=== PATIENT | male | born 1980 | race Hispanic/Latino ===

== ENCOUNTER 2018-03-04 11:29 | Emergency (ER) | payer SELFPAY ==
[2018-03-04] MEDS ORDERED: LIDOCAINE VISCOUS 2% SOLN 15 ML UDC ONE (12:16)
[2018-03-04] MEDS ORDERED: KETOROLAC 30 MG/ML INJ ONE (12:16)
[2018-03-04] MEDS ORDERED: MAGNE/ALUM HYDROXD 30 ML UCUP ONE (12:23)
--- NOTE | 2018-03-04 12:42 | EDPHYS ---
Physician Documentation [facility] Name: Heladio Stein Age: 37 yrs Sex: Male : 1980 Arrival Date: 03/04/2018 Time: 11:31 Bed 25 Private MD: None, None ED Physician Santo Alexandra HPI: 03/04 12:50 This 37 yrs old Male presents to ER via Ambulatory with complaints of Flu snw Symptoms. 12:50 Onset: The symptoms/episode began/occurred suddenly, yesterday, and became persistent. snw Associated signs and symptoms: Pertinent positives: congestion, cough, headache, sore throat. It is unknown whether or not the patient has had similar symptoms in the past. The patient has not recently seen a physician. Historical: - Allergies: 11:42 No Known Allergies; ss - Home Meds: 11:42 None [Active]; ss - PMHx: 11:42 None; ss - PSHx: 11:42 None; ss - Immunization history:: Adult Immunizations up to date. - Social history:: Smoking status: Patient/guardian denies using tobacco. - Ebola Screening: : Patient denies exposure to infectious person Patient denies travel to an Ebola-affected area in the 21 days before illness onset. ROS: 13:12 Eyes: Negative for injury, pain, redness, and discharge. snw 13:12 Neck: Negative for injury, pain, and swelling, Cardiovascular: Negative for chest pain, palpitations, and edema, Respiratory: Negative for shortness of breath, cough, wheezing, and pleuritic chest pain, Abdomen/GI: Negative for abdominal pain, nausea, vomiting, diarrhea, and constipation, Back: Negative for injury and pain, : Negative for injury, bleeding, discharge, and swelling, MS/Extremity: Negative for injury and deformity, Skin: Negative for injury, rash, and discoloration, Neuro: Negative for headache, weakness, numbness, tingling, and seizure. 13:12 Constitutional: Positive for body aches, fatigue, malaise, poor PO intake. 13:12 ENT: Positive for nasal discharge, sore throat. Exam: 13:12 Head/Face: Normocephalic, atraumatic. Eyes: Pupils equal round and reactive to light, snw extra-ocular motions intact. Lids and lashes normal. Conjunctiva and sclera are non-icteric and not injected. Cornea within normal limits. Periorbital areas with no swelling, redness, or edema. 13:12 Neck: Trachea midline, no thyromegaly or masses palpated, and no cervical lymphadenopathy. Supple, full range of motion without nuchal rigidity, or vertebral point tenderness. No Meningismus. Chest/axilla: Normal chest wall appearance and motion. Nontender with no deformity. No lesions are appreciated. Cardiovascular: Regular rate and rhythm with a normal S1 and S2. No gallops, murmurs, or rubs. Normal PMI, no JVD. No pulse deficits. Respiratory: Lungs have equal breath sounds bilaterally, clear to auscultation and percussion. No rales, rhonchi or wheezes noted. No increased work of breathing, no retractions or nasal flaring. Abdomen/GI: Soft, non-tender, with normal bowel sounds. No distension or tympany. No guarding or rebound. No evidence of tenderness throughout. Back: No spinal tenderness. No costovertebral tenderness. Full range of motion. Skin: Warm, dry with normal turgor. Normal color with no rashes, no lesions, and no evidence of cellulitis. MS/ Extremity: Pulses equal, no cyanosis. Neurovascular intact. Full, normal range of motion. Neuro: Awake and alert, GCS 15, oriented to person, place, time, and situation. Cranial nerves II-XII grossly intact. Motor strength 5/5 in all extremities. Sensory grossly intact. Cerebellar exam normal. Normal gait. 13:12 Constitutional: The patient appears alert, awake, uncomfortable. 13:12 ENT: External ear(s): are unremarkable, TM's: erythema, that is mild, on the left, Mouth: is normal, Posterior pharynx: swelling, that is mild, erythema, that is moderate, Voice: is normal. Vital Signs: 11:42 Pulse 67; Resp 15; Temp 97.9(TE); Pulse Ox 97% ; Weight 113.4 kg; Height 5 ft. 7 in. ss (170.18 cm); Pain 6/10; 11:43 BP 147 / 80; ss 11:42 Body Mass Index 39.16 (113.40 kg, 170.18 cm) MDM: 11:55 Patient medically screened. snw 12:49 Data reviewed: vital signs, nurses notes. Data interpreted: Pulse oximetry: on room air snw Interpretation: normal. Counseling: I had a detailed discussion with the patient and/or guardian regarding: the historical points, exam findings, and any diagnostic results supporting the discharge/admit diagnosis, the presence of at least one elevated blood pressure reading (>120/80) during this emergency department visit, the need for outpatient follow up, to return to the emergency department if symptoms worsen or persist or if there are any questions or concerns that arise at home. Special discussion: I have referred the patient to see his PCP for further evaluation of high blood pressure. Based on the history and exam findings, there is no indication for further emergent testing or inpatient evaluation. I discussed with the patient/guardian the need to see the primary care provider for further evaluation of the symptoms. 03/04 11:56 Order name: Strep; Complete Time: 12:39 snw 03/04 12:32 Order name: Throat Culture EDMS Administered Medications: 12:24 Drug: TORadol 60 mg Route: IM; Site: left gluteus; ss 12:57 Follow up: Response: No adverse reaction ss 12:24 Drug: GI Cocktail without - (Maalox Suspension 30 ml, Lidocaine Liquid 2 % 15 ss ml) Route: PO; 12:57 Follow up: Response: No adverse reaction; Pain is decreased ss Disposition: 15:45 Co-signature as Attending Physician, Santo Alexandra MD. rn Disposition: 03/04/18 12:41 Discharged to Home. Impression: Acute pharyngitis, Acute upper respiratory infection, unspecified. - Condition is Stable. - Discharge Instructions: Hypertension, Pharyngitis, Viral Respiratory Infection, Cool Mist Vaporizer. - Prescriptions for Prednisone 20 mg Oral Tablet - take 1 tablet by ORAL route 2 times per day for 5 days; 10 tablet. Tessalon Perles 100 mg Oral Capsule - take 1 capsule by ORAL route every 8 hours As needed; 15 capsule. - Work release form, Medication Reconciliation Form, Thank You Letter, Antibiotic Education, Prescription Opioid Use form. - Follow up: Private Physician; When: 2 - 3 days; Reason: Recheck today's complaints, Continuance of care, Re-evaluation by your physician. Follow up: Emergency Department; When: As needed; Reason: Worsening of condition. Signatures: Dispatcher [employer] EDWendy Haasy, STATISTICS INTERN-C STATISTICS INTERN-Csnw Santo Alexandra MD MD rn Lucy Pratt RN RN ss Corrections: (The following items were deleted from the chart) 12:59 12:41 03/04/2018 12:41 Discharged to Home. Impression: Acute pharyngitis; Acute upper ss respiratory infection, unspecified. Condition is Stable. Forms are Medication Reconciliation Form, Thank You Letter, Antibiotic Education, Prescription Opioid Use. Follow up: Private Physician; When: 2 - 3 days; Reason: Recheck today's complaints, Continuance of care, Re-evaluation by your physician. Follow up: Emergency Department; When: As needed; Reason: Worsening of condition. snw
--- NOTE | 2018-03-04 12:42 | ER ---
Nurse's Notes [facility] Name: Heladio Stein Age: 37 yrs Sex: Male : 1980 Arrival Date: 03/04/2018 Time: 11:31 Bed 25 Private MD: None, None Diagnosis: Acute pharyngitis;Acute upper respiratory infection, unspecified Presentation: 03/04 11:41 Presenting complaint: Patient states: sore throat, body aches and fatigue that began ss yesterday. Transition of care: patient was not received from another setting of care. Onset of symptoms was March 04, 2018. Risk Assessment: Do you want to hurt yourself or someone else? Patient reports no desire to harm self or others. Initial Sepsis Screen: Does the patient meet any 2 criteria? No. Patient's initial sepsis screen is negative. Does the patient have a suspected source of infection? No. Patient's initial sepsis screen is negative. Care prior to arrival: None. 11:41 Method Of Arrival: Ambulatory ss 11:41 Acuity: ROLANDO 4 ss Historical: - Allergies: 11:42 No Known Allergies; ss - Home Meds: 11:42 None [Active]; ss - PMHx: 11:42 None; ss - PSHx: 11:42 None; ss - Immunization history:: Adult Immunizations up to date. - Social history:: Smoking status: Patient/guardian denies using tobacco. - Ebola Screening: : Patient denies exposure to infectious person Patient denies travel to an Ebola-affected area in the 21 days before illness onset. Screenin:43 Abuse screen: Denies threats or abuse. Denies injuries from another. Nutritional ss screening: No deficits noted. Tuberculosis screening: Never had TB. Fall Risk None identified. Assessment: 12:58 Reassessment: Patient appears in no apparent distress at this time. Patient and/or ss family updated on plan of care and expected duration. Pain level reassessed. Patient is alert, oriented x 3, equal unlabored respirations, skin warm/dry/pink. Vital Signs: 11:42 Pulse 67; Resp 15; Temp 97.9(TE); Pulse Ox 97% ; Weight 113.4 kg; Height 5 ft. 7 in. ss (170.18 cm); Pain 6/10; 11:43 BP 147 / 80; ss 11:42 Body Mass Index 39.16 (113.40 kg, 170.18 cm) ED Course: 11:31 Patient arrived in ED. mr 11:32 None, None is Private Physician. mr 11:35 Rocio Lowe FNP-C [facility]. snw 11:35 Santo Alexandra MD is Attending Physician. snw 11:42 Triage completed. ss 11:42 Arm band placed on left wrist. ss 11:43 Patient has correct armband on for positive identification. Bed in low position. Call ss light in reach. 12:07 Lucy Pratt, RN is Primary Nurse. ss 12:08 Strep Sent. ss 12:58 No provider procedures requiring assistance completed. Patient did not have IV access ss during this emergency room visit. Administered Medications: 12:24 Drug: TORadol 60 mg Route: IM; Site: left gluteus; ss 12:57 Follow up: Response: No adverse reaction ss 12:24 Drug: GI Cocktail without - (Maalox Suspension 30 ml, Lidocaine Liquid 2 % 15 ss ml) Route: PO; 12:57 Follow up: Response: No adverse reaction; Pain is decreased ss Outcome: 12:41 Discharge ordered by . snw 12:58 Discharged to home ambulatory. ss 12:58 Condition: good 12:58 Discharge instructions given to patient, Instructed on discharge instructions, follow up and referral plans. medication usage, Demonstrated understanding of instructions, follow-up care, medications. 12:59 Patient left the ED. ss Signatures: Rocio Lowe FNP-C [employer]orah[employer] Eli Palmer Lucy Pratt, RN RN
== END 2018-03-04 12:59 | disposition home or self-care (01) ==
LOC: ER 11:29
DX: J06.9 Acute upper respiratory infection, unspecified (principal)
CPT/HCPCS: 87070; 87081; 96372; 99283

== ENCOUNTER 2019-06-21 09:31 | Emergency (ER) | payer SELFPAY ==
--- NOTE | 2019-06-21 11:03 | ER ---
Nurse's Notes [facility] Name: Heladio Stein Age: 38 yrs Sex: Male : 1980 Arrival Date: 06/21/2019 Time: 09:33 Bed 20 Private MD: Diagnosis: Cough;Vomiting;Acute upper respiratory infection, unspecified;Influenza due to other identified influenza virus-Inf B Presentation: 06/21 09:49 Presenting complaint: Patient states: chills, body aches, dizziness, vomiting (vomited sv on Wednesday) started Wednesday night. Transition of care: patient was not received from another setting of care. Onset of symptoms was June 18, 2019. Risk Assessment: Do you want to hurt yourself or someone else? Patient reports no desire to harm self or others. Initial Sepsis Screen: Does the patient meet any 2 criteria? No. Patient's initial sepsis screen is negative. Does the patient have a suspected source of infection? No. Patient's initial sepsis screen is negative. Care prior to arrival: Medication(s) given: Dayquil and Zicam taken today at 0500. 09:49 Method Of Arrival: Ambulatory sv 09:49 Acuity: ROLANDO 4 sv Triage Assessment: 09:52 General: Appears in no apparent distress. uncomfortable, well developed, Behavior is sv calm, cooperative, appropriate for age. Pain: Complains of pain in "all over" Pain currently is 2 out of 10 on a pain scale. Quality of pain is described as aching, Pain began 2-3 days ago. Is intermittent. Neuro: Level of Consciousness is awake, alert, obeys commands, Oriented to person, place, time, situation, Moves all extremities. Full function Speech is normal. Neuro: Reports dizziness. Respiratory: Airway is patent Respiratory effort is even, unlabored, Respiratory pattern is regular, symmetrical. Derm: Skin is pink, warm \\T\\ dry. Historical: - Allergies: 09:51 No Known Allergies; sv - PMHx: 09:51 None; sv - PSHx: :51 None; sv - Immunization history:: Adult Immunizations up to date. - Social history:: Smoking status: . - Ebola Screening: : No symptoms or risks identified at this time. - Family history:: not pertinent. Screenin:51 Abuse screen: Denies threats or abuse. Denies injuries from another. Nutritional sv screening: No deficits noted. Tuberculosis screening: No symptoms or risk factors identified. Fall Risk None identified. Assessment: 09:59 General: Appears in no apparent distress. comfortable, Behavior is calm, cooperative, ca1 appropriate for age. General: Reports chills for 2-3 days, fever for. Pain: Complains of pain in all over Pain currently is 6 out of 10 on a pain scale. Pain began 2-3 days ago. Neuro: Level of Consciousness is awake, alert, obeys commands, Oriented to person, place, time, situation, Appropriate for age. Cardiovascular: Heart tones S1 S2 present Capillary refill < 3 seconds Patient's skin is warm and dry. Respiratory: Reports cough that is non-productive, since 3 days Airway is patent Respiratory effort is even, unlabored, Respiratory pattern is regular, symmetrical, Breath sounds are clear bilaterally. GI: Abdomen is round non-distended, Bowel sounds present X 4 quads. Abd is soft and non tender X 4 quads. Reports nausea, vomiting, since Wednesday. But not today. : No deficits noted. No signs and/or symptoms were reported regarding the genitourinary system. EENT: No deficits noted. No signs and/or symptoms were reported regarding the EENT system. Derm: Skin is intact, is healthy with good turgor, Skin is pink, warm \\T\\ dry. Musculoskeletal: Circulation, motion, and sensation intact. Capillary refill < 3 seconds. 10:52 Reassessment: Patient appears in no apparent distress at this time. Patient is alert, ca1 oriented x 3, equal unlabored respirations, skin warm/dry/pink. 11:18 Reassessment: PO challenge completed. No reports of N/V at this time. ca1 Vital Signs: 09:51 BP 128 / 102; Pulse 106; Resp 15; Temp 98.2(O); Pulse Ox 96% on R/A; Weight 74.84 kg; sv Height 5 ft. 7 in. (170.18 cm); 10:52 BP 134 / 100; Pulse 77; Resp 16 S; Pulse Ox 96% on R/A; ca1 09:51 Body Mass Index 25.84 (74.84 kg, 170.18 cm) sv ED Course: 09:33 Patient arrived in ED. as 09:36 Lin Crum, BLAINE is Primary Nurse. sv 09:36 Wilfrid Brown MD is Attending Physician. [facility] 09:36 Arm band placed on Patient placed in an exam room, on a stretcher. sv 09:36 Patient has correct armband on for positive identification. Bed in low position. Call sv light in reach. Pulse ox on. NIBP on. Door closed. Head of bed elevated. 09:50 Triage completed. sv 09:52 Awaiting ED provider evaluation. sv 09:53 Report given to Gayatri VALLADARES. sv 09:57 Gayatri Clarke RN is Primary Nurse. ca1 09:59 No provider procedures requiring assistance completed. Patient did not have IV access ca1 during this emergency room visit. Administered Medications: 11:09 Drug: Zofran 4 mg Route: PO; ca1 11:18 Follow up: Response: No adverse reaction ca1 11:10 Drug: Tamiflu 75 mg Route: PO; ca1 11:18 Follow up: Response: Medication administered at discharge. ca1 Outcome: 11:03 Discharge ordered by . [facility] 11:19 Discharged to home ambulatory. ca1 11:19 Condition: stable 11:19 Discharge instructions given to patient, Instructed on discharge instructions, follow up and referral plans. medication usage, Demonstrated understanding of instructions, follow-up care, medications, Prescriptions given X 3. 11:19 Patient left the ED. ca1 Signatures: Lin Crum RN RN Wilfrid Voss MD MD cha Martinez, Amelia as Gayatri Clarke RN RN ca1
--- NOTE | 2019-06-21 11:04 | EDPHYS ---
Physician Documentation [facility] Name: Heladio Stein Age: 38 yrs Sex: Male : 1980 Arrival Date: 06/21/2019 Time: 09:33 Bed 20 Private MD: ANDRES Physician Wilfrid Brown HPI: 06/21 10:29 This 38 yrs old Male presents to ER via Ambulatory with complaints of Flu ginna Symptoms. 10:29 The patient has shortness of breath at rest, with light activity. Onset: The ginna symptoms/episode began/occurred 3 day(s) ago. Duration: The symptoms are continuous, and are steadily getting worse. The patient's shortness of breath has no apparent modifying factors. The patient presents to the emergency department with nausea, vomiting, that is intermittent. Onset: The symptoms/episode began/occurred 2 day(s) ago. Possible causes: unknown. The symptoms are aggravated by nothing. The symptoms are alleviated by nothing. Historical: - Allergies: 09:51 No Known Allergies; sv - PMHx: 09:51 None; sv - PSHx: 09:51 None; sv - Immunization history:: Adult Immunizations up to date. - Social history:: Smoking status: . - Ebola Screening: : No symptoms or risks identified at this time. - Family history:: not pertinent. ROS: 10:29 Constitutional: Negative for fever, chills, and weight loss, Eyes: Negative for injury, ginna pain, redness, and discharge, ENT: Negative for injury, pain, and discharge, Neck: Negative for injury, pain, and swelling, Cardiovascular: Negative for chest pain, palpitations, and edema, Back: Negative for injury and pain, : Negative for injury, bleeding, discharge, and swelling, MS/Extremity: Negative for injury and deformity, Skin: Negative for injury, rash, and discoloration, Neuro: Negative for headache, weakness, numbness, tingling, and seizure, Psych: Negative for depression, anxiety, suicide ideation, homicidal ideation, and hallucinations, Allergy/Immunology: Negative for hives, rash, and allergies, Endocrine: Negative for neck swelling, polydipsia, polyuria, polyphagia, and marked weight changes, Hematologic/Lymphatic: Negative for swollen nodes, abnormal bleeding, and unusual bruising. 10:29 Respiratory: Positive for cough, with no reported sputum. 10:29 Abdomen/GI: Positive for nausea and vomiting. Exam: 10:29 Constitutional: This is a well developed, well nourished patient who is awake, alert, ginna and in no acute distress. Head/Face: Normocephalic, atraumatic. Eyes: Pupils equal round and reactive to light, extra-ocular motions intact. Lids and lashes normal. Conjunctiva and sclera are non-icteric and not injected. Cornea within normal limits. Periorbital areas with no swelling, redness, or edema. ENT: Nares patent. No nasal discharge, no septal abnormalities noted. Tympanic membranes are normal and external auditory canals are clear. Oropharynx with no redness, swelling, or masses, exudates, or evidence of obstruction, uvula midline. Mucous membranes moist. Neck: Trachea midline, no thyromegaly or masses palpated, and no cervical lymphadenopathy. Supple, full range of motion without nuchal rigidity, or vertebral point tenderness. No Meningismus. Chest/axilla: Normal chest wall appearance and motion. Nontender with no deformity. No lesions are appreciated. Respiratory: Lungs have equal breath sounds bilaterally, clear to auscultation and percussion. No rales, rhonchi or wheezes noted. No increased work of breathing, no retractions or nasal flaring. Abdomen/GI: Soft, non-tender, with normal bowel sounds. No distension or tympany. No guarding or rebound. No evidence of tenderness throughout. Back: No spinal tenderness. No costovertebral tenderness. Full range of motion. Skin: Warm, dry with normal turgor. Normal color with no rashes, no lesions, and no evidence of cellulitis. MS/ Extremity: Pulses equal, no cyanosis. Neurovascular intact. Full, normal range of motion. Neuro: Awake and alert, GCS 15, oriented to person, place, time, and situation. Cranial nerves II-XII grossly intact. Motor strength 5/5 in all extremities. Sensory grossly intact. Cerebellar exam normal. Normal gait. Psych: Awake, alert, with orientation to person, place and time. Behavior, mood, and affect are within normal limits. 10:29 Cardiovascular: Rate: tachycardic, Rhythm: regular, Pulses: Pulses are 4+ in bilateral radial, brachial, femoral, popliteal, posterior tibial and and dorsalis pedis arteries.. Heart sounds: normal, normal S1and S2, no S3 or S4, no murmur, no rub, no gallop. Vital Signs: 09:51 BP 128 / 102; Pulse 106; Resp 15; Temp 98.2(O); Pulse Ox 96% on R/A; Weight 74.84 kg; sv Height 5 ft. 7 in. (170.18 cm); 10:52 BP 134 / 100; Pulse 77; Resp 16 S; Pulse Ox 96% on R/A; ca1 09:51 Body Mass Index 25.84 (74.84 kg, 170.18 cm) sv MDM: 09:36 Patient medically screened. [facility] 10:32 Data reviewed: vital signs, nurses notes, lab test result(s). [facility] 06/21 10:02 Order name: Flu; Complete Time: 11:[address] [facility] 06/21 10:02 Order name: Strep; Complete Time: 11:[address] [facility] 06/21 10:47 Order name: Throat Culture [facility] 06/21 11:02 Order name: PO challenge; Complete Time: 11:10 [facility] Administered Medications: 11:09 Drug: Zofran 4 mg Route: PO; [facility] 11:18 Follow up: Response: No adverse reaction ca1 11:10 Drug: Tamiflu 75 mg Route: PO; [facility] 11:18 Follow up: Response: Medication administered at discharge. ca1 Disposition: 06/21/19 11:03 Discharged to Home. Impression: Cough, Vomiting, Acute upper respiratory infection, unspecified, Influenza due to other identified influenza virus - Inf B. - Condition is Stable. - Discharge Instructions: Influenza, Adult, Nausea and Vomiting, Adult, Upper Respiratory Infection, Adult, Cool Mist Vaporizer, Nausea and Vomiting, Adult, Nemk-vi-Mgvc, Upper Respiratory Infection, Adult, Wftf-rx-[id number], Influenza, Adult, Fhqr-ca-Buvv, Cough, Adult. - Prescriptions for Zofran 4 mg Oral Tablet - take 1 tablet by ORAL route every 12 hours As needed; 20 tablet. Zithromax Z- Rahul 250 mg Oral Tablet - take 1 tablet by ORAL route as directed for 5 days Day 1 - take two (2) tablets one time. Day 2, 3, 4 , 5 take one (1) tablet once daily.; 6 tablet. Tamiflu 75 mg Oral Capsule - take 1 tablet by ORAL route every 12 hours for 5 days; 10 tablet. - Medication Reconciliation Form, Thank You Letter, Antibiotic Education, Prescription Opioid Use, Work release form form. - Follow up: Private Physician; When: 2 - 3 days; Reason: Recheck today's complaints, Continuance of care, Re-evaluation by your physician. - Problem is new. - Symptoms have improved. Signatures: Dispatcher [employer] Lin Sheets RN RN sv Anderson, Corey, MD MD cha Acob, BLAINE Mendieta RN ca1 Corrections: (The following items were deleted from the chart) 11:03 11:03 06/21/2019 11:03 Discharged to Home. Impression: Cough; Vomiting; Acute upper ginna respiratory infection, unspecified. Condition is Stable. Discharge Instructions: Nausea and Vomiting, Adult, Upper Respiratory Infection, Adult, Cool Mist Vaporizer, Nausea and Vomiting, Adult, Bqjq-hp-Kgfu, Upper Respiratory Infection, Adult, Vgzb-ca-Flvl, Cough, Adult. Prescriptions for Zofran 4 mg Oral Tablet - take 1 tablet by ORAL route every 12 hours As needed; 20 tablet, Zithromax Z-Rahul 250 mg Oral Tablet - take 1 tablet by ORAL route as directed for 5 days Day 1 - take two (2) tablets one time. Day 2, 3, 4 , 5 take one (1) tablet once daily.; 6 tablet, Tamiflu 75 mg Oral Capsule - take 1 tablet by ORAL route every 12 hours for 5 days; 10 tablet. and Forms are Medication Reconciliation Form, Thank You Letter, Antibiotic Education, Prescription Opioid Use. Follow up: Private Physician; When: 2 - 3 days; Reason: Recheck today's complaints, Continuance of care, Re-evaluation by your physician. Problem is new. Symptoms have improved. [facility] 11:19 11:03 06/21/2019 11:03 Discharged to Home. Impression: Cough; Vomiting; Acute upper ca1 respiratory infection, unspecified; Influenza due to other identified influenza virus - Inf B. Condition is Stable. Discharge Instructions: Nausea and Vomiting, Adult, Upper Respiratory Infection, Adult, Cool Mist Vaporizer, Nausea and Vomiting, Adult, Usks-ib-Satc, Upper Respiratory Infection, Adult, Vsqo-dk-Qmxc, Cough, Adult. Prescriptions for Zofran 4 mg Oral Tablet - take 1 tablet by ORAL route every 12 hours As needed; 20 tablet, Zithromax Z-Rahul 250 mg Oral Tablet - take 1 tablet by ORAL route as directed for 5 days Day 1 - take two (2) tablets one time. Day 2, 3, 4 , 5 take one (1) tablet once daily.; 6 tablet, Tamiflu 75 mg Oral Capsule - take 1 tablet by ORAL route every 12 hours for 5 days; 10 tablet. and Forms are Medication Reconciliation Form, Thank You Letter, Antibiotic Education, Prescription Opioid Use. Follow up: Private Physician; When: 2 - 3 days; Reason: Recheck today's complaints, Continuance of care, Re-evaluation by your physician. Problem is new. Symptoms have improved. ginna
[2019-06-21] MEDS ORDERED: OSELTAMIVIR 75 MG CAP ONE (11:09)
[2019-06-21] MEDS ORDERED: ONDANSETRON 4 MG (ODT) TAB ONE (11:09)
[2019-06-21 11:30] VITALS: TEMP 98.2; O2SAT 96
[2019-06-21 11:31] VITALS: BP 134/100
== END 2019-06-21 11:19 | disposition home or self-care (01) ==
LOC: ER 09:31
DX: J10.1 Influenza due to other identified influenza virus with other respiratory manifestations (principal); R11.10 Vomiting, unspecified; R05 Cough
CPT/HCPCS: 87070; 87081; 87804; 99283

== ENCOUNTER 2019-10-28 13:35 | Emergency (ER) | payer SELFPAY ==
[2019-10-28 14:15] LABS: Absolute Lymphocytes (CBC) 2.5 K/uL (0.7-4.9); Basophils % 1.2 % (0-1.3); Hematocrit 53.5 % (39.6-49.0); Lymphocytes % 21.7 % (15.3-44.8); MPV 8.4 fL (7.6-11.3); RBC Red Blood Cell Count 6.37 M/uL (4.33-5.43)
[2019-10-28] MEDS ORDERED: ONDANSETRON 4 MG/2 ML VIAL ONE (14:31)
[2019-10-28] MEDS ORDERED: NA CHLORIDE 0.9% 1,000 ML ONE (14:31)
[2019-10-28] MEDS ORDERED: MORPHINE 4 MG/ML SYR ONE ×2 (14:31→16:02)
[2019-10-28 14:35] LABS: Albumin 4.3 g/dL (3.4-5.0); Bilirubin Direct 0.1 mg/dL (0-0.2); Bilirubin Total 0.6 mg/dL (0.2-1.0); Potassium 3.9 mmol/L (3.5-5.1); Protein, Total 8.4 g/dL (6.4-8.2)
--- NOTE | 2019-10-28 15:49 | RAD REPORT ---
EXAM DESCRIPTION: CTAbdomen Pelvis W Contrast - 10/28/2019 3:36 pm CLINICAL HISTORY: Abdominal pain. abd pain COMPARISON: No comparisons TECHNIQUE: Biphasic CT imaging of the abdomen and pelvis was performed with 100 ml non-ionic IV cont rast. All CT scans are performed using dose optimization technique as appropriate and may include automated exposure control or mA/KV adjustment according to patient size. FINDINGS: The lung bases are clear. Mild diffuse fatty liver is seen. The spleen, pancreas, adrenal glands and right kidney are normal. M ild left hydronephrosis is present left kidney caused by a 5 mm calculus (920 HU) at the left UPJ. In addition, 15 mm benign cyst is present posterosuperior cortex left kidney. No bowel obstruction, free air, free fluid or abscess. The appendix is normal. No evidence of signi ficant lymphadenopathy. No suspicious bony findings. IMPRESSION: 5 mm stone at the left UPJ with mild left hydronephrosis.
--- NOTE | 2019-10-28 16:58 | EDPHYS ---
Physician Documentation [facility] Name: Heladio Stein Age: 39 yrs Sex: Male : 1980 Arrival Date: 10/28/2019 Time: 13:38 Bed 6 Private MD: ED Physician Ashutosh Palmer HPI: 10/27 14:16 This 39 yrs old Male presents to ER via Ambulatory with complaints of pm1 Abdominal Pain. 14:16 The patient presents with abdominal pain in the left upper quadrant. Onset: The pm1 symptoms/episode began/occurred this morning. The symptoms do not radiate. Associated signs and symptoms: Pertinent positives: nausea and vomiting, Pertinent negatives: chest pain, constipation, dysuria, fever, shortness of breath. The symptoms are described as achy, constant. Modifying factors: The symptoms are alleviated by nothing, the symptoms are aggravated by nothing. Severity of pain: in the emergency department the pain is actually worse. The patient has not experienced similar symptoms in the past. Historical: - Allergies: 13:47 No Known Allergies; hb - Home Meds: 13:47 None [Active]; hb - PMHx: 13:47 None; hb - PSHx: 13:47 None; hb - Immunization history:: Adult Immunizations up to date. - Social history:: Smoking status: Patient denies any tobacco usage or history of. ROS: 14:16 Constitutional: Negative for fever, chills, and weight loss, Cardiovascular: Negative pm1 for chest pain, palpitations, and edema, Respiratory: Negative for shortness of breath, cough, wheezing, and pleuritic chest pain. 14:16 Back: Negative for injury and pain, : Negative for injury, bleeding, discharge, and swelling, MS/Extremity: Negative for injury and deformity, Skin: Negative for injury, rash, and discoloration, Neuro: Negative for headache, weakness, numbness, tingling, and seizure. 14:16 Abdomen/GI: Positive for abdominal pain, nausea and vomiting, Negative for diarrhea, constipation. Exam: 14:16 Constitutional: This is a well developed, well nourished patient who is awake, alert, pm1 and in no acute distress. Head/Face: Normocephalic, atraumatic. Chest/axilla: Normal chest wall appearance and motion. Nontender with no deformity. No lesions are appreciated. 14:16 Back: No spinal tenderness. No costovertebral tenderness. Full range of motion. Skin: Warm, dry with normal turgor. Normal color with no rashes, no lesions, and no evidence of cellulitis. MS/ Extremity: Pulses equal, no cyanosis. Neurovascular intact. Full, normal range of motion. 14:16 Cardiovascular: Exam negative for acute changes, Rate: normal, Rhythm: regular, Pulses: no pulse deficits are appreciated. 14:16 Respiratory: Exam negative for acute changes, respiratory distress, shortness of breath. 14:16 Abdomen/GI: Inspection: obese Palpation: soft, in all quadrants, moderate abdominal tenderness, in the left upper quadrant, mass, is not appreciated, rebound tenderness, is not appreciated. 14:16 Neuro: Exam negative for acute changes, Orientation: is normal, Mentation: is normal, Motor: is normal, moves all fours. Vital Signs: 13:45 BP 172 / 82; Pulse 96; Resp 18; Temp 98; Pulse Ox 98% ; Weight 120.2 kg; Height 5 ft. 7 hb in. (170.18 cm); Pain 10/10; 16:00 BP 164 / 103; Pulse 90; Resp 16; Pulse Ox 95% on R/A; em 17:00 BP 157 / 89; Pulse 87; Resp 18; Pulse Ox 99% on R/A; Pain 0/10; em 13:45 Body Mass Index 41.50 (120.20 kg, 170.18 cm) hb MDM: 14:06 Patient medically screened. pm1 15:26 Data reviewed: vital signs. Data interpreted: Pulse oximetry: on room air is 98 %. pm1 Interpretation: normal. 16:39 Counseling: I had a detailed discussion with the patient and/or guardian regarding: the pm1 historical points, exam findings, and any diagnostic results supporting the discharge/admit diagnosis, lab results, radiology results, the need for outpatient follow up, for definitive care, a urologist, to return to the emergency department if symptoms worsen or persist or if there are any questions or concerns that arise at home. 10/27 13:59 Order name: Basic Metabolic Panel em 10/27 13:59 Order name: CBC with Diff em 10/27 13:59 Order name: Hepatic Function em 10/27 13:59 Order name: Lipase em 10/27 14:19 Order name: Basic Metabolic Panel; Complete Time: 06:20 EDMS 10/27 14:19 Order name: Liver (Hepatic) Function; Complete Time: 06:20 EDMS 10/27 14:19 Order name: Lipase; Complete Time: 06:20 EDMS 10/27 14:19 Order name: CBC with Automated Diff; Complete Time: 06:20 EDMS 10/27 16:39 Order name: Urine Microscopic Only; Complete Time: 06:20 pm1 10/27 16:59 Order name: Abdomen ; Complete Time: 06:20 EDMS 10/27 17:29 Order name: Urine Dipstick--Ancillary (enter results); Complete Time: 06:20 em1 10/27 13:59 Order name: IV Saline Lock; Complete Time: 14:07 em 10/27 13:59 Order name: Labs collected and sent; Complete Time: 14:07 em 10/27 16:39 Order name: Urine Dipstick-Ancillary (obtain specimen); Complete Time: 17:27 pm1 Administered Medications: 14:27 Drug: NS 0.9% 1000 ml Route: IV; Rate: 1000 ml; Site: right antecubital; em 16:53 Follow up: IV Status: Completed infusion; IV Intake: 1000ml em 14:27 Drug: Zofran (Ondansetron) 4 mg Route: IVP; Site: right antecubital; em 15:00 Follow up: Response: No adverse reaction em 14:29 Drug: morphine 4 mg Route: IVP; Site: right antecubital; em 15:00 Follow up: Response: No adverse reaction; Marked relief of symptoms; Pain is decreased; em RASS: Alert and Calm (0) 16:00 Drug: morphine 4 mg Route: IVP; Site: right antecubital; em 17:00 Follow up: Response: No adverse reaction; Marked relief of symptoms; Pain is decreased; em RASS: Alert and Calm (0) 17:30 Drug: Flomax 0.4 mg Route: PO; em 17:47 Follow up: Response: Medication administered at discharge. em 17:30 Drug: Cipro 500 mg Route: PO; em 17:47 Follow up: Response: Medication administered at discharge. em Disposition: 10/28 07:04 Co-signature as Attending Physician, Ashutosh Palmer MD. [email or web address] Disposition: 10/28/19 16:40 Discharged to Home. Impression: Calculus of ureter - left. - Condition is Stable. - Discharge Instructions: Kidney Stones, Dietary Guidelines to Help Prevent Kidney Stones. - Prescriptions for Tylenol- Codeine #3 300-30 mg Oral Tablet - take 2 tablets by ORAL route every 6 hours As needed; 20 tablet. Zofran 4 mg Oral Tablet - take 1 tablet by ORAL route every 12 hours As needed; 20 tablet. Flomax 0.4 mg Oral Capsule, Sust. Release 24 hr - take 1 capsule by ORAL route once daily 1/2 hour following the same meal each day; 10 capsule. Cipro 500 mg Oral Tablet - take 1 tablet by ORAL route every 12 hours for 7 days; 14 tablet. - Medication Reconciliation Form, Thank You Letter, Antibiotic Education, Prescription Opioid Use form. - Follow up: Emergency Department; When: As needed; Reason: Worsening of condition. Follow up: Mariana Begum MD; When: 2 - 3 days; Reason: Recheck today's complaints, Continuance of care, Re-evaluation by your physician. - Problem is new. - Symptoms have improved. Signatures: Dispatcher [employer] [facility] Cordell Vogel RN RN em Jose Karimi, DELIVERY AGENT DELIVERY AGENT pm1 Eufemia Mchugh RN RN Ashutosh Palmer MD MD 7 Corrections: (The following items were deleted from the chart) 10/27 17:37 17:03 Abdomen Pelvis W Con+CT.RAD.BRZ ordered. [facility] 17:49 16:40 10/28/2019 16:40 Discharged to Home. Impression: Calculus of ureter - left. em Condition is Stable. Forms are Medication Reconciliation Form, Thank You Letter, Antibiotic Education, Prescription Opioid Use. Follow up: Emergency Department; When: As needed; Reason: Worsening of condition. Follow up: Mariana Begum; When: 2 - 3 days; Reason: Recheck today's complaints, Continuance of care, Re-evaluation by your physician. Problem is new. Symptoms have improved. pm1
--- NOTE | 2019-10-28 16:58 | ER ---
Nurse's Notes [facility] Name: Heladio Stein Age: 39 yrs Sex: Male : 1980 Arrival Date: 10/28/2019 Time: 13:38 Bed 6 Private MD: Diagnosis: Calculus of ureter-left Presentation: 10/27 13:45 Chief complaint: Upper abdominal pain and N/V upon waking today. Tolerating small hb amounts of fluids. Coronavirus screen: Proceed with normal triage. Ebola Screen: No symptoms or risks identified at this time. Initial Sepsis Screen: Does the patient meet any 2 criteria? No. Patient's initial sepsis screen is negative. Does the patient have a suspected source of infection? No. Patient's initial sepsis screen is negative. Risk Assessment: Do you want to hurt yourself or someone else? Patient reports no desire to harm self or others. Onset of symptoms was October 28, 2019. 13:45 Method Of Arrival: Ambulatory hb 13:45 Acuity: ROLANDO 3 hb Historical: - Allergies: 13:47 No Known Allergies; hb - Home Meds: 13:47 None [Active]; hb - PMHx: 13:47 None; hb - PSHx: 13:47 None; hb - Immunization history:: Adult Immunizations up to date. - Social history:: Smoking status: Patient denies any tobacco usage or history of. Screenin:15 Abuse screen: Denies threats or abuse. Nutritional screening: No deficits noted. em Tuberculosis screening: No symptoms or risk factors identified. Fall Risk None identified. Assessment: 14:15 General: Appears uncomfortable, Behavior is cooperative, restless, Denies fever. Pain: em Complains of pain in left upper quadrant and left lower quadrant Pain currently is 10 out of 10 on a pain scale. Quality of pain is described as sharp. Neuro: Level of Consciousness is awake, alert, obeys commands, Oriented to person, place, time, situation, Appropriate for age. Cardiovascular: Capillary refill < 3 seconds. Respiratory: Airway is patent Respiratory effort is even, unlabored, Respiratory pattern is regular, symmetrical. GI: Abdomen is flat, Bowel sounds present X 4 quads. Abd is soft X 4 quads Abdomen is tender to palpation in left upper quadrant and left lower quadrant Patient currently denies nausea, vomiting. Derm: Skin is intact, is healthy with good turgor, Skin is clammy, Skin is pink, Skin temperature is cool. Musculoskeletal: Capillary refill < 3 seconds, Range of motion: intact in all extremities. 15:00 Reassessment: Patient appears in no apparent distress at this time. Patient and/or em family updated on plan of care and expected duration. Pain level reassessed. Patient is alert, oriented x 3, equal unlabored respirations, skin warm/dry/pink. 16:00 Reassessment: Patient appears in no apparent distress at this time. Patient and/or em family updated on plan of care and expected duration. Pain level reassessed. Patient is alert, oriented x 3, equal unlabored respirations, skin warm/dry/pink. rates pain 5/10. 17:00 Reassessment: Patient appears in no apparent distress at this time. Patient and/or em family updated on plan of care and expected duration. Pain level reassessed. Patient is alert, oriented x 3, equal unlabored respirations, skin warm/dry/pink. Patient denies pain at this time. Patient states feeling better. Vital Signs: 13:45 BP 172 / 82; Pulse 96; Resp 18; Temp 98; Pulse Ox 98% ; Weight 120.2 kg; Height 5 ft. 7 hb in. (170.18 cm); Pain 10/10; 16:00 BP 164 / 103; Pulse 90; Resp 16; Pulse Ox 95% on R/A; em 17:00 BP 157 / 89; Pulse 87; Resp 18; Pulse Ox 99% on R/A; Pain 0/10; em 13:45 Body Mass Index 41.50 (120.20 kg, 170.18 cm) hb ED Course: 13:38 Patient arrived in ED. bp1 13:47 Triage completed. hb 13:47 Arm band placed on. hb 13:56 Cordell Vogel, BLAINE is Primary Nurse. em 13:57 Jose Karimi NP is PHCP. pm1 13:57 Ashutosh Palmer MD is Attending Physician. pm1 14:01 Initial lab(s) drawn, by me. Inserted saline lock: 18 gauge in right antecubital area, jb1 using aseptic technique. Blood collected. 14:15 Patient has correct armband on for positive identification. Bed in low position. Call em light in reach. Side rails up X2. Pulse ox on. NIBP on. 16:40 Mariana Begum MD is Referral Physician. pm1 17:48 No provider procedures requiring assistance completed. IV discontinued, intact, em bleeding controlled, No redness/swelling at site. Pressure dressing applied. Administered Medications: 14:27 Drug: NS 0.9% 1000 ml Route: IV; Rate: 1000 ml; Site: right antecubital; em 16:53 Follow up: IV Status: Completed infusion; IV Intake: 1000ml em 14:27 Drug: Zofran (Ondansetron) 4 mg Route: IVP; Site: right antecubital; em 15:00 Follow up: Response: No adverse reaction em 14:29 Drug: morphine 4 mg Route: IVP; Site: right antecubital; em 15:00 Follow up: Response: No adverse reaction; Marked relief of symptoms; Pain is decreased; em RASS: Alert and Calm (0) 16:00 Drug: morphine 4 mg Route: IVP; Site: right antecubital; em 17:00 Follow up: Response: No adverse reaction; Marked relief of symptoms; Pain is decreased; em RASS: Alert and Calm (0) 17:30 Drug: Flomax 0.4 mg Route: PO; em 17:47 Follow up: Response: Medication administered at discharge. em 17:30 Drug: Cipro 500 mg Route: PO; em 17:47 Follow up: Response: Medication administered at discharge. em Intake: 16:53 IV: 1000ml; Total: 1000ml. em Outcome: 16:40 Discharge ordered by MD. pm1 17:48 Discharged to home ambulatory. em 17:48 Condition: good 17:48 Discharge instructions given to patient, Instructed on discharge instructions, follow up and referral plans. no drinking with medication, no driving heavy equipment, medication usage, Demonstrated understanding of instructions, follow-up care, medications, Prescriptions given X 4. 17:49 Patient left the ED. em Signatures: Lobo Boyer jb1 Cordell Vogel RN RN em Joes Karimi, HYDROELECTRIC MACHINERY MECHANIC HYDROELECTRIC MACHINERY MECHANIC pm1 Eufemia Mchugh RN RN Fozia Khalil [facility]
[2019-10-28] MEDS ORDERED: TAMSULOSIN 0.4 MG SR CAP ONE (17:15)
[2019-10-28] MEDS ORDERED: CIPROFLOXACIN HCL 500 MG TAB ONE (17:15)
[2019-10-28 18:17] LABS: Urine Blood 3+ (NEG); Urine Glucose NEGATIVE (NEG); Urine Protein 1+ (NEG); Urine Specific Gravity 1.015 (1.005-1.030); Urine pH 6.5 (5.0-7.0)
[2019-10-28 18:20] VITALS: TEMP 98
[2019-10-28 18:23] VITALS: BP 157/89; O2SAT 99
[2019-10-28 18:23] LABS: Urine Bacteria <20 /HPF (NONE SEEN); Urine Culture Reflex Order NOT NEEDED; Urine RBC >50 /HPF (NONE SEEN)
--- NOTE | 2019-10-31 19:43 | CON ---
History Of Present Illness: A 39-year-old male came to the emergency room about 2-3 days ag o with sudden onset of left flank pain. He was diagnosed with a 7 mm left UPJ stone. He was sent ho me on pain medication, which he has been taking around the clock. He ran out of the pain medication. The pain came back severe enough, came to the ER when it was intractable. He received 4 mg of morp genny x2 and still had lots of pain was admitted for intractable pain and for cysto and bibiana nt placement. All the general information, alternatives, and risks were reviewed. The patient wishe s to proceed. This is his 1st stone, had never had a similar episode before until several days ago. Allergies: NO KNOWN DRUG ALLERGIES. Home Medications: None. Past Medical History: Borderline hypertension. Past Surgical History: None. Immunizations: Up to date. Review of Systems: Otherwise negative. Physical Examination: Vital Signs: Stable. HEENT: Atraumatic. Lungs: Clear. Abdomen: Soft, nontender. Present left flank tenderness. Extremities: Normal range of motion. Laboratory Data: Reviewed. White count 10.7, H and H 16 and 48, platelets 269. Chemistry shows sod ium 139, potassium 3.9, chloride 105, carbon dioxide 25, BUN 17, creatinine 1.3, GFR 63, glucose 100, calcium 8.6. UA is pending. Assessment: A 7 mm left ureteropelvic junction stone. Plan: To do cystoscopy and stent placement. Patient will need further therapy later, possibly ESWL, possible ureteroscopy PB/MODL Voice ID: [id number] Report ID: [id number]
== END 2019-10-28 17:49 | disposition home or self-care (01) ==
LOC: ER 13:35
DX: N20.1 Calculus of ureter (principal)
CPT/HCPCS: 36415; 74177; 80048; 80076; 81003; 81015; 83690; 85025; 96361; 96374; 96375; 99284; J2405; J7030; Q9967

== ENCOUNTER 2019-10-31 10:15 | Observation (INO) | payer SELFPAY ==
[2019-10-31] MEDS ORDERED: MORPHINE 4 MG/ML SYR ONE ×2 (10:53→12:23)
[2019-10-31] MEDS ORDERED: ONDANSETRON 4 MG/2 ML VIAL ONE ×2 (10:53→14:07)
[2019-10-31] MEDS ORDERED: TAMSULOSIN 0.4 MG SR CAP ONE (10:53)
[2019-10-31] MEDS ORDERED: MAGNESIUM SULFATE 1 gm IVPB 1 GM/100 ML BAG IV ONE (10:54)
[2019-10-31 11:03] LABS: Absolute Lymphocytes (CBC) 2.4 K/uL (0.7-4.9); Basophils % 1.5 % (0-1.3); Hematocrit 48.7 % (39.6-49.0); Lymphocytes % 22.9 % (15.3-44.8); MPV 8.4 fL (7.6-11.3); RBC Red Blood Cell Count 5.87 M/uL (4.33-5.43)
[2019-10-31 11:19] LABS: Potassium 3.9 mmol/L (3.5-5.1)
--- NOTE | 2019-10-31 11:26 | RAD REPORT ---
EXAM DESCRIPTION: CT - Stone Protocol - 10/31/2019 10:55 am CLINICAL HISTORY: left flank pain COMPARISON: Abdomen Pelvis W Contrast dated 10/28/2019 TECHNIQUE: Axial 3 mm thick images were obtained without oral or IV contrast. The [id number] span s the entirety of the system including uppermost abdomen and lung bases. All CT scans are performed using dose optimization technique as appropriate and may include automated exposure control or mA/KV adjustment according to patient size. FINDINGS: Mild hydronephrosis of the left pelvis and calices secondary to a 6 mm left UPJ calculus. Viewed from a KUB projection this is in proximity to the L2 left transverse process. Severity of hydr onephrosis and position of the stone not substantially different from the October 27 study. No other calc bibiana seen. No right-sided hydronephrosis. No suspicious renal masses. Isodense masses and pyelonephrit is are not excluded on a stone protocol CT scan. Small cyst of the left kidney again noted. No adrena l abnormality. Urinary bladder is mostly contracted. No bladder calculus. Liver shows fatty infiltration. No focal liver finding. Spleen and pancreas show no suspicious findin gs. No gallbladder or biliary tree abnormality identified. No suspicious bowel findings. No hernia, mass or bulky lymphadenopathy noted. No free air, free fluid or inflammatory stranding. No significant bony abnormality. IMPRESSION: Mild hydronephrosis secondary to a 6 mm left UPJ calculus. Stone side, degree of hydronephrosis and stone position not significantly different from October 27. Isodense masses and pyelonephritis are not excluded on stone protocol technique.
[2019-10-31 11:40] LABS: Urine Blood 2+ (NEG); Urine Glucose NEGATIVE (NEG); Urine Protein TRACE (NEG); Urine Specific Gravity 1.025 (1.005-1.030); Urine pH 5.5 (5.0-7.0)
[2019-10-31] MEDS ORDERED: MORPHINE 2 MG/ML SYR IV PRN (13:39)
[2019-10-31] MEDS ORDERED: CEFTRIAXONE/SWI 1gm 1 GM/10 ML SYR IV SCH (13:39)
[2019-10-31] MEDS ORDERED: ONDANSETRON 4 MG/2 ML VIAL IV PRN (13:39)
[2019-10-31] MEDS ORDERED: ACETAMINOPHEN 650MG/RECT SUPP PR PRN (13:39)
[2019-10-31] MEDS ORDERED: Ringers Lactate 1,000 ML IV ONE (13:50)
[2019-10-31] MEDS ORDERED: FENTANYL CITR 100 MCG/2 ML ONE (13:57)
[2019-10-31] MEDS ORDERED: GENTAMICIN 100 MG/100 ML BAG 100 ML IV ONE (13:57)
[2019-10-31] MEDS ORDERED: MIDAZOLAM HCL 2 MG/2 ML INJ ONE (13:57)
[2019-10-31] MEDS ORDERED: NA CHLORIDE 0.9% 1,000 ML IV SCH (14:00)
[2019-10-31] MEDS ORDERED: propofoL 200 MG/20 ML VIAL IV ONE (14:07)
[2019-10-31] MEDS ORDERED: KETOROLAC 30 MG/ML INJ ONE (14:07)
[2019-10-31] MEDS ORDERED: LIDOCAINE 1% MPF 5 ML VIAL ONE (14:07)
[2019-10-31] MEDS ORDERED: Mastisol Adhesive Liq ONE (14:25)
--- NOTE | 2019-10-31 14:37 | RAD REPORT ---
EXAM DESCRIPTION: RAD - Urography Retrograde - 10/31/2019 2:33 pm CLINICAL HISTORY: STENT COMPARISON: No comparisons FINDINGS: Total fluoro time: 1.1 minutes
[2019-10-31] MEDS ORDERED: POTASSIUM CL SA 10 MEQ TAB PO ONE (16:00)
[2019-10-31 16:10] VITALS: BMI 41.5
[2019-10-31 16:23] VITALS: BP 142/83; TEMP 97.1
--- NOTE | 2019-10-31 16:44 | P.SSS ---
Patient History Date of Service: 10/31/19 Primary Care Provider: None Reason for admission: UPJ stone History of Present Illness: Patient is a 39-year-old male with no significant past medical history other than morbid obesity comes back to the ER for left flank pain. Patient was here on 10/27/2024 to have a stone and was discharged on medications including Cipro from the ER. Patient comes in again with worsening pain. Patient's symptoms are constant moderate and progressively worsening. Patient denies any fever chills. CT scan of the abdomen showed a 6 mm stone at the UPJ. Urology was consulted and recommended stenting. Patient's workup revealed normal WBC count. When seen in the ER he was awake alert oriented x3 in some mild distress. Patient was admitted for further evaluation and management. Patient was taken directly to the OR for UPJ stent Allergies No Known Allergies Allergy (Verified 10/31/19 16:03) Home Medications: NK [No Home Meds] 10/31/19 - Past Medical/Surgical History Has patient received pneumonia vaccine in the past: No Diabetic: No Past Medical History: Patient denies medical history Past Surgical History: Patient denies surgical history - Family History Family History: Reviewed- Non-Contributory (Denies any premature coronary artery disease in the family) - Social History Smoking Status: Never smoker Alcohol use: Yes CD- Drugs: No Caffeine use: Yes Place of Residence: Home Review of Systems 10-point ROS is otherwise unremarkable Genitourinary: As per HPI Physical Examination - Vital Signs Temperature: 97.1 F Blood Pressure: 142/83 Pulse: 81 Respirations: 18 Pulse Ox (%): 94 - Physical Exam General: Alert, Oriented x3, Mild distress, Obese HEENT: Atraumatic, PERRLA, Mucous membr. moist/pink, EOMI, Sclerae nonicteric Neck: Supple, JVD not distended Respiratory: Clear to auscultation bilaterally, Normal air movement, Other (No wheezing or stridor) Cardiovascular: No edema, Normal pulses, Regular rate/rhythm, Normal S1 S2 Gastrointestinal: Normal bowel sounds, Soft and benign, Non-distended, No tenderness, Other (Left flank tenderness) Musculoskeletal: No clubbing, No tenderness Integumentary: No rashes Neurological: Normal speech, Normal strength at 5/5 x4 extr, Normal tone, Cranial nerves 3-12 intact, Normal affect - Studies Laboratory Data (last 24 hrs) 10/31/19 10:54: Sodium 139, Potassium 3.9, BUN 17, Creatinine 1.28, Glucose 100 10/31/19 10:54: WBC 10.5, Hgb 16.2, Hct 48.7, Plt Count 269 Imagings Data: EXAM DESCRIPTION: CT - Stone Protocol - 10/31/2019 10:55 am CLINICAL HISTORY: left flank pain COMPARISON: Abdomen Pelvis W Contrast dated 10/28/2019 TECHNIQUE: Axial 3 mm thick images were obtained without oral or IV contrast. The [id number] spans the entirety of the system including uppermost abdomen and lung bases. All CT scans are performed using dose optimization technique as appropriate and may include automated exposure control or mA/KV adjustment according to patient size. FINDINGS: Mild hydronephrosis of the left pelvis and calices secondary to a 6 mm left UPJ calculus. Viewed from a KUB projection this is in proximity to the L2 left transverse process. Severity of hydronephrosis and position of the stone not substantially different from the October 27 study. No other calculi seen. No right-sided hydronephrosis. No suspicious renal masses. Isodense masses and pyelonephritis are not excluded on a stone protocol CT scan. Small cyst of the left kidney again noted. No adrenal abnormality. Urinary bladder is mostly contracted. No bladder calculus. Liver shows fatty infiltration. No focal liver finding. Spleen and pancreas show no suspicious findings. No gallbladder or biliary tree abnormality identified. No suspicious bowel findings. No hernia, mass or bulky lymphadenopathy noted. No free air, free fluid or inflammatory stranding. No significant bony abnormality. IMPRESSION: Mild hydronephrosis secondary to a 6 mm left UPJ calculus. Stone side, degree of hydronephrosis and stone position not significantly different from October 27. Isodense masses and pyelonephritis are not excluded on stone protocol technique. - Diagnosis (Problem(s)) (1) Nephrolithiasis Current Visit: Yes Status: Acute (2) Morbid obesity Current Visit: Yes Status: Acute (3) Fatty liver disease, nonalcoholic Current Visit: Yes Status: Acute Treatment Summary: Patient is a 39-year-old male with no significant past medical history other than obesity was admitted for UPJ stone on the left 6 mm. Patient is taking to the OR by Dr. Begum for stent placement. Patient did well postoperatively. Pain was improved. Patient was given IV antibiotics, IV fluids. Patient was then cleared for discharge from a neurology standpoint. Patient denies any signs of sepsis. Patient will be discharged home in a stable condition. He is to finish off course of antibiotics with Keflex and to discontinue the Cipro. He will also be on Flomax and pain medications. Patient was instructed to follow up with urology in 2 weeks for stent removal. Patient will also need to establish care with a primary care physician to address his obesity and fatty liver disease. He was counseled regarding his fatty liver disease which likely result in liver cirrhosis if left untreated for 10-20 years. He understands that he needs to change his diet and exercise habits. Needs to have his liver enzymes and imaging with liver done periodically to monitor his fatty liver disease. Patient voiced understanding. All questions were answered. Patient was discharged home in stable condition - Disposition Disposition: ROUTINE DISCHARGE Condition: GOOD Consultations: Dr. Begum urology Patient Discharge Instructions: Follow up with neurologist Dr. Begum in 1-2 weeks. Establish care with primary care physician. Return to ER for worsening condition Diet: Calorie restricted diet Activity: No driving or operating heavy machinery while on narcotics
[2019-10-31 16:50] VITALS: O2SAT 94
--- NOTE | 2019-11-06 13:14 | ER ---
Nurse's Notes [facility] Name: Heladio Stein Age: 39 yrs Sex: Male : 1980 Arrival Date: 10/31/2019 Time: 10:17 Bed 13 Private MD: Diagnosis: Hydronephrosis with renal and ureteral calculous obstruction;Intractable pain Presentation: 10/30 10:20 Chief complaint: Patient states: "I was just here with kidney stones the other day". Pt aa5 c/o pain to left flank. Pt denies nausea/vomiting. 10:20 Coronavirus screen: Proceed with normal triage. Patient denies a cough. Patient denies aa5 shortness of breath or difficulty breathing. Patient denies measured and/or subjective temperature greater than 100.4F prior to today's visit. Patient denies travel on a cruise ship or to a country the [facility] currently lists as an affected area. Patient denies contact with known and/or suspected case of COVID-19. Ebola Screen: Patient negative for fever greater than or equal to 101.5 degrees Fahrenheit, and additional compatible Ebola Virus Disease symptoms. Initial Sepsis Screen: Does the patient meet any 2 criteria? No. Patient's initial sepsis screen is negative. Does the patient have a suspected source of infection? No. Patient's initial sepsis screen is negative. Risk Assessment: Do you want to hurt yourself or someone else? Patient reports no desire to harm self or others. Onset of symptoms was October 2019. 10:20 Acuity: ROLANDO 3 aa5 10:20 Method Of Arrival: Ambulatory aa5 Triage Assessment: 10:30 General: Appears in no apparent distress. uncomfortable, Behavior is cooperative, bp appropriate for age, anxious. Pain: Complains of pain in left mid back. EENT: No deficits noted. Neuro: No deficits noted. Cardiovascular: No deficits noted. Respiratory: No deficits noted. GI: Abdomen is non-distended. : No signs and/or symptoms were reported regarding the genitourinary system. Derm: No deficits noted. Musculoskeletal: No deficits noted. Historical: - Allergies: 10:20 No Known Allergies; aa5 - PMHx: 10:20 Kidney stones; aa5 - PSHx: 10:20 None; aa5 - Immunization history:: Adult Immunizations. - Family history:: not pertinent. - Social history:: Smoking status: Patient denies any tobacco usage or history of. - Hospitalizations: : No recent hospitalization is reported. Screenin:39 Abuse screen: Denies threats or abuse. Denies injuries from another. Nutritional bp screening: No deficits noted. Tuberculosis screening: No symptoms or risk factors identified. Fall Risk None identified. Assessment: 10:30 General: SEE TRIAGE NOTE. bp 11:02 Reassessment: Patient appears in no apparent distress at this time. Patient and/or rb1 family updated on plan of care and expected duration. Pain level reassessed. Patient is alert, oriented x 3, equal unlabored respirations, skin warm/dry/pink. Pt. reports that the pain has moved to a different area since Wednesday. 12:24 Reassessment: ALL CURRENT ORDERS COMPLETED, RESULTS PENDING FOR DISPO. bp 13:32 Reassessment: PT BERNARDA WITH OR NURSE. bp Vital Signs: 10:20 BP 151 / 102; Pulse 99; Resp 18 S; Pulse Ox 96% on R/A; aa5 11:04 BP 141 / 93; Pulse 92; Resp 18; Pulse Ox 96% on R/A; rb1 12:24 BP 146 / 99; Pulse 87; Resp 16; Pulse Ox 96% ; bp 13:32 BP 142 / 91; Pulse 87; Resp 16; Pulse Ox 96% ; bp ED Course: 10:17 Patient arrived in ED. ag5 10:20 Arm band placed on Patient placed in an exam room, on a stretcher. aa5 10:23 Santo Alexandra MD is Attending Physician. rn 10:37 Steven Betancur RN is Primary Nurse. bp 10:37 Triage completed. aa5 10:39 Patient has correct armband on for positive identification. Bed in low position. Call bp light in reach. Side rails up X2. 10:41 CT Stone Protocol Sent. bp 10:46 CT Stone Protocol In Process Unspecified. EDMS 10:52 Initial lab(s) drawn, by me, sent to lab. Inserted saline lock: 20 gauge in right kj1 antecubital area, using aseptic technique. Blood collected. 12:45 Alesha Pack MD is Hospitalizing Provider. rn 13:35 No provider procedures requiring assistance completed. Patient admitted, IV remains in bp place. Administered Medications: 10:55 Drug: Flomax 0.4 mg Route: PO; rb1 13:02 Follow up: Response: No adverse reaction bp 10:59 Drug: morphine 4 mg Route: IVP; Site: right antecubital; rb1 13:02 Follow up: Response: Pain is decreased bp 10:59 Drug: Zofran (Ondansetron) 4 mg Route: IVP; Site: right antecubital; rb1 13:02 Follow up: Response: No adverse reaction bp 10:59 Drug: Magnesium Sulfate 1 grams Route: IVPB; Infused Over: 1 hrs; Site: right rb1 antecubital; 13:02 Follow up: IV Status: Completed infusion; IV Intake: 50ml bp 12:00 Drug: morphine 4 mg Route: IVP; Site: right antecubital; bp 13:01 Follow up: Response: Pain is decreased bp Intake: 13:02 IV: 50ml; Total: 50ml. bp Outcome: 12:46 Decision to Hospitalize by Provider. rn 13:34 Admitted to OR accompanied by nurse, via wheelchair. bp 13:34 Condition: stable 13:34 Instructed on the need for admit. 13:37 Patient left the ED. bp Signatures: Dispatcher [employer] EDMS Santo Alexandra MD MD rn Calderon, Audri RN RN aa5 Usha Ruiz RN RN rb1 Steven Betancur RN RN bp Jayce Moreira ag5 Coby Narayan kj1
--- NOTE | 2019-11-06 13:15 | EDPHYS ---
Physician Documentation [facility] Name: Heladio Stein Age: 39 yrs Sex: Male : 1980 Arrival Date: 10/31/2019 Time: 10:17 Bed 13 Private MD: ED Physician Santo Alexandra HPI: 10/30 10:34 This 39 yrs old Male presents to ER via Unassigned with complaints of Possible rn Kidney Stone. 10:34 The patient complains of pain in the left mid back. Onset: The symptoms/episode rn began/occurred 4 day(s) ago. Modifying factors: The symptoms are alleviated by nothing. the symptoms are aggravated by nothing. Severity of pain: At its worst the pain was moderate in the emergency department the pain is unchanged. The patient has not experienced similar symptoms in the past. The patient has been recently seen at the [facility]. Reports diagnosed with kidney stone, left sided, 4 days ago, doesn't feel like has passed, feels like moving, now pain radiating around left abdomen, no hematuria, no fever, on abx already since last visit. States pain medication was helping but now ran out. . Historical: - Allergies: 10:20 No Known Allergies; aa5 - PMHx: 10:20 Kidney stones; aa5 - PSHx: 10:20 None; aa5 - Immunization history:: Adult Immunizations. - Family history:: not pertinent. - Social history:: Smoking status: Patient denies any tobacco usage or history of. - Hospitalizations: : No recent hospitalization is reported. ROS: 10:34 Constitutional: Negative for fever, chills, and weight loss, Cardiovascular: Negative rn for chest pain, palpitations, and edema, Respiratory: Negative for shortness of breath, cough, wheezing, and pleuritic chest pain, Abdomen/GI: Negative for diarrhea, and constipation, Back: + left flank pain : Negative for injury, bleeding, discharge, and swelling, MS/Extremity: Negative for injury and deformity, Skin: Negative for injury, rash, and discoloration, Neuro: Negative for headache, weakness, numbness, tingling, and seizure. Exam: 10:34 Constitutional: This is a well developed, well nourished patient who is awake, alert, rn appears uncomfortable ENT: MMM Cardiovascular: Regular rate and rhythm. No pulse deficits. Respiratory: No increased work of breathing, no retractions or nasal flaring. Abdomen/GI: soft, non-tender Back: No costovertebral tenderness Skin: Warm, dry Neuro: Awake and alert, GCS 15 Vital Signs: 10:20 BP 151 / 102; Pulse 99; Resp 18 S; Pulse Ox 96% on R/A; aa5 11:04 BP 141 / 93; Pulse 92; Resp 18; Pulse Ox 96% on R/A; rb1 12:24 BP 146 / 99; Pulse 87; Resp 16; Pulse Ox 96% ; bp 13:32 BP 142 / 91; Pulse 87; Resp 16; Pulse Ox 96% ; bp MDM: 10:23 Patient medically screened. rn 11:29 ED course: Consulted with Dr. Begum, requests dc home if pain can be controlled, wants rn him to f/u as outpt. Will see if we can manage his pain enough to dc home. No movement of stone, 6.9mm, proximal. . 11:40 ED course: Pt still in a lot of pain, will redose morphine and reeval.. rn 12:44 Differential diagnosis: nephrolithiasis. Data reviewed: vital signs, nurses notes, civil laboratory technician test result(s), radiologic studies, CT scan, and as a result, I will admit patient. Counseling: I had a detailed discussion with the patient and/or guardian regarding: the historical points, exam findings, and any diagnostic results supporting the discharge/admit diagnosis, lab results, radiology results, the need for further work-up and treatment in the hospital. Admission orders: after a detailed discussion of the patient's condition and case, the admit orders are written by me. ED course: Consulted again with dr. Begum, pain not well controlled, patient still reports moderate pain, will admit to hospitalist and Dr. Begum will consult for stent placement. . 10/30 10:34 Order name: CBC with Diff; Complete Time: 11:25 rn 10/30 10:34 Order name: Basic Metabolic Panel; Complete Time: 11:25 rn 10/30 10:34 Order name: CT Stone Protocol; Complete Time: 11:30 rn 10/30 11:29 Order name: Urine Dipstick--Ancillary (enter results); Complete Time: 12:41 eb 10/30 10:34 Order name: IV Start; Complete Time: 11:02 rn 10/30 10:34 Order name: Urine Dipstick-Ancillary (obtain specimen); Complete Time: 11:28 rn 10/30 12:46 Order name: NPO; Complete Time: 13:01 rn Administered Medications: 10:55 Drug: Flomax 0.4 mg Route: PO; rb1 13:02 Follow up: Response: No adverse reaction bp 10:59 Drug: morphine 4 mg Route: IVP; Site: right antecubital; rb1 13:02 Follow up: Response: Pain is decreased bp 10:59 Drug: Zofran (Ondansetron) 4 mg Route: IVP; Site: right antecubital; rb1 13:02 Follow up: Response: No adverse reaction bp 10:59 Drug: Magnesium Sulfate 1 grams Route: IVPB; Infused Over: 1 hrs; Site: right rb1 antecubital; 13:02 Follow up: IV Status: Completed infusion; IV Intake: 50ml bp 12:00 Drug: morphine 4 mg Route: IVP; Site: right antecubital; bp 13:01 Follow up: Response: Pain is decreased bp Disposition: 10/31/19 12:46 Hospitalization ordered by Alesha Pack for Inpatient Admission. Preliminary diagnosis are Hydronephrosis with renal and ureteral calculous obstruction, Intractable pain. - Bed requested for Telemetry/MedSurg (Inpatient). - Status is Inpatient Admission. bp - Condition is Stable. - Problem is an ongoing problem. - Symptoms are unchanged. Signatures: Dispatcher [employer] EDMS Santo Alexandra MD MD rn Calderon, Audri RN RN aa5 Usha Ruiz RN RN rb1 Steven Betancur, BLAINE RN bp Corrections: (The following items were deleted from the chart) 13:37 12:46 Hospitalization Ordered by Alesha Pack MD for Inpatient Admission. Preliminary bp diagnosis is Hydronephrosis with renal and ureteral calculous obstruction; Intractable pain. Bed requested for Telemetry/MedSurg (Inpatient). Status is Inpatient Admission. Condition is Stable. Problem is an ongoing problem. Symptoms are unchanged. rn
== END 2019-10-31 17:48 | disposition home or self-care (01) ==
LOC: ER 10:15 → ERHOLD 13:20 → 2ND 15:02
PROVIDERS: ADMIT Family Medicine; ATTEND Family Medicine
PROC: 0T778DZ Dilation of Left Ureter with Intraluminal Device, Via Natural or Artificial Opening Endoscopic (ICD-10-PCS; principal; 2019-10-31 17:00)
DX: N20.1 Calculus of ureter (principal); N20.0 Calculus of kidney; N13.30 Unspecified hydronephrosis; K76.0 Fatty (change of) liver, not elsewhere classified; E66.01 Morbid (severe) obesity due to excess calories; Z68.41 Body mass index [BMI] 40.0-44.9, adult
CPT/HCPCS: 36415; 74176; 74420; 76377; 80048; 81003; 85025; 94760; 96365; 96366; 96375; 99285; G0378; J0696; J1580; J2250; J2405; J2704; J3010; J3475; J7030; J7120

== ENCOUNTER 2020-04-24 14:47 | Emergency (ER) | payer SELFPAY ==
--- NOTE | 2020-04-24 16:20 | RAD REPORT ---
EXAM DESCRIPTION: CT - Stone Protocol - 04/24/2020 3:31 pm CLINICAL HISTORY: Hematuria left flank pain COMPARISON: October 2019 TECHNIQUE: Computed axial tomography of the abdomen pelvis was obtained without oral or IV contrast. Lack of IV and oral contrast limits evaluation of solid organs, bowel, and vessels. Coronal reformat young images were obtained and reviewed. All CT scans are performed using dose optimization technique as appropriate and may include automated exposure control or mA/KV adjustment according to patient size. FINDINGS: 5 millimeter calculus lower pole left kidney. A left ureteral stent is in good position. N o hydronephrosis. No left ureteral calculus. Small left renal cyst No right renal calculus. No hydronephrosis. A right ureteral calculus is not present. No bladder calc ulus. Bladder wall thickening Fatty liver The Spleen, pancreas and adrenals appear grossly normal There is no evidence of diverticulitis. The appendix appears normal. Tiny umbilical hernia IMPRESSION: 5 millimeter nonobstructing left renal calculus Bladder wall thickening may be secondary to incomplete distention or cystitis
[2020-04-24 16:23] LABS: Urine Blood 2+ (NEG); Urine Glucose NEGATIVE (NEG); Urine Protein 1+ (NEG); Urine pH 6.5 (5.0-7.0)
[2020-04-24 17:33] LABS: Urine RBC >50 /HPF (NONE SEEN)
[2020-04-24 17:34] LABS: Urine Bacteria 20-50 /HPF (NONE SEEN); Urine Culture Reflex Order REFLEXED
--- NOTE | 2020-04-24 17:46 | EDPHYS ---
Physician Documentation [facility] Name: Heladio Stein Age: 39 yrs Sex: Male : 1980 Arrival Date: 04/24/2020 Time: 14:49 Bed 24 Private MD: ED Physician Santo Alexandra HPI: 04/24 17:44 This 39 yrs old Male presents to ER via Ambulatory with complaints of Flank kb Pain, Urinary Problem. 17:44 The patient complains of pain in the left flank. The pain radiates to the left lower kb quadrant. Onset: The symptoms/episode began/occurred yesterday. Modifying factors: The symptoms are alleviated by nothing. the symptoms are aggravated by nothing. Associated signs and symptoms: Pertinent positives: hematuria, Pertinent negatives: diarrhea, dizziness, dysuria, fever, urinary frequency, headache, nausea, pain radiating to the lower extremities, vomiting. Severity of pain: At its worst the pain was moderate in the emergency department the pain is unchanged. The patient has experienced similar episodes in the past, a few times. The patient has not recently seen a physician. Historical: - Allergies: 15:08 No Known Allergies; sv - PMHx: 15:08 Kidney stones; sv - PSHx: 15:08 None; sv - Immunization history:: Flu vaccine is up to date. - Social history:: Smoking status: Patient reports the use of cigarette tobacco products, denies chronic smoking, but will smoke occasionally. ROS: 17:44 Constitutional: Negative for fever, chills, and weight loss, Cardiovascular: Negative kb for chest pain, palpitations, and edema, Respiratory: Negative for shortness of breath, cough, wheezing, and pleuritic chest pain, Abdomen/GI: Negative for abdominal pain, nausea, vomiting, diarrhea, and constipation, MS/Extremity: Negative for injury and deformity, Skin: Negative for injury, rash, and discoloration, Neuro: Negative for headache, weakness, numbness, tingling, and seizure. 17:44 : Positive for flank pain, hematuria. kb Exam: 17:44 Constitutional: This is a well developed, well nourished patient who is awake, alert, kb and in no acute distress. Head/Face: Normocephalic, atraumatic. Chest/axilla: Normal chest wall appearance and motion. Nontender with no deformity. No lesions are appreciated. Cardiovascular: Regular rate and rhythm with a normal S1 and S2. No gallops, murmurs, or rubs. Normal PMI, no JVD. No pulse deficits. Respiratory: Lungs have equal breath sounds bilaterally, clear to auscultation and percussion. No rales, rhonchi or wheezes noted. No increased work of breathing, no retractions or nasal flaring. Abdomen/GI: Soft, non-tender, with normal bowel sounds. No distension or tympany. No guarding or rebound. No evidence of tenderness throughout. Skin: Warm, dry with normal turgor. Normal color with no rashes, no lesions, and no evidence of cellulitis. MS/ Extremity: Pulses equal, no cyanosis. Neurovascular intact. Full, normal range of motion. Neuro: Awake and alert, GCS 15, oriented to person, place, time, and situation. Cranial nerves II-XII grossly intact. Motor strength 5/5 in all extremities. Sensory grossly intact. Cerebellar exam normal. Normal gait. 17:44 Back: CVA tenderness, that is mild, is noted on the left. Vital Signs: 15:07 BP 161 / 91; Pulse 99; Resp 20; Temp 97.5; Pulse Ox 100% ; Weight 124.74 kg; Height 5 sv ft. 7 in. (170.18 cm); Pain 7/10; 15:07 Body Mass Index 43.07 (124.74 kg, 170.18 cm) sv MDM: 17:42 Patient medically screened. 17:43 Data reviewed: vital signs, nurses notes. Data interpreted: Pulse oximetry: on room air kb is 100 %. Interpretation: normal. Counseling: I had a detailed discussion with the patient and/or guardian regarding: the historical points, exam findings, and any diagnostic results supporting the discharge/admit diagnosis, lab results, radiology results, the need for outpatient follow up, a family practitioner, to return to the emergency department if symptoms worsen or persist or if there are any questions or concerns that arise at home. 17:49 ED course: BULK DRIVER reviewed. kb 04/24 16:01 Order name: Urine Dipstick--Ancillary (enter results); Complete Time: 16:27 bd 04/24 16:28 Order name: Urine Microscopic Only; Complete Time: 17:42 kb 04/24 15:10 Order name: CT Stone Protocol; Complete Time: 16:27 04/24 17:36 Order name: Urine Culture [facility] 04/24 15:26 Order name: Urine Dipstick-Ancillary (obtain specimen); Complete Time: 18:02 kb Administered Medications: 18:07 Drug: TORadol 30 mg Route: IM; Site: right deltoid; aj1 18:33 Follow up: Response: No adverse reaction aj1 18:07 Drug: Augmentin 875 mg Route: PO; aj1 18:33 Follow up: Response: No adverse reaction aj1 Disposition: 19:00 Co-signature as Attending Physician, Santo Alexandra MD. rn Disposition: 04/24/20 17:45 Discharged to Home. Impression: Urinary tract infection, site not specified, Hematuria, unspecified. - Condition is Stable. - Discharge Instructions: Hematuria, Adult, Urinary Tract Infection, Adult, [id number]. - Prescriptions for Augmentin 875- 125 mg Oral Tablet - take 1 tablet by ORAL route every 12 hours for 10 days; 20 tablet. Tramadol 50 mg Oral Tablet - take 1 tablet by ORAL route every 8 hours as needed; 12 tablet. - Medication Reconciliation Form, Thank You Letter, Antibiotic Education, Prescription Opioid Use form. - Follow up: Emergency Department; When: As needed; Reason: Worsening of condition. Follow up: Private Physician; When: 2 - 3 days; Reason: Recheck today's complaints, Continuance of care, Re-evaluation by your physician. Signatures: Dispatcher [employer] EDPA Maine Narayan, CLINICAL TRIALS SYSTEMS ADMINISTRATOR-C CLINICAL TRIALS SYSTEMS ADMINISTRATOR-Calib Eulalia Gil RN RN aj1 Lin Crum RN RN Santo Alexandra MD MD rn peritoneal dialysis: (The following items were deleted from the chart) 18:34 17:45 04/24/2020 17:45 Discharged to Home. Impression: Urinary tract infection, site aj1 not specified; Hematuria, unspecified. Condition is Stable. Forms are Medication Reconciliation Form, Thank You Letter, Antibiotic Education, Prescription Opioid Use. Follow up: Emergency Department; When: As needed; Reason: Worsening of condition. Follow up: Private Physician; When: 2 - 3 days; Reason: Recheck today's complaints, Continuance of care, Re-evaluation by your physician. kb
--- NOTE | 2020-04-24 17:46 | ER ---
Nurse's Notes [facility] Name: Heladio Stein Age: 39 yrs Sex: Male : 1980 Arrival Date: 04/24/2020 Time: 14:49 Bed 24 Private MD: Diagnosis: Urinary tract infection, site not specified;Hematuria, unspecified Presentation: 04/24 15:07 Chief complaint: Patient states: left flank pain that radiates to the LLQ, hematuria sv started yesterday. Coronavirus screen: Client denies travel out of the [place] in the last 14 days. At this time, the client does not indicate any symptoms associated with coronavirus-19. Ebola Screen: No symptoms or risks identified at this time. Initial Sepsis Screen: Does the patient meet any 2 criteria? HR > 90 bpm. No. Patient's initial sepsis screen is negative. Does the patient have a suspected source of infection? No. Patient's initial sepsis screen is negative. Risk Assessment: Do you want to hurt yourself or someone else? Patient reports no desire to harm self or others. Onset of symptoms was April 23, 2020. 15:07 Method Of Arrival: Ambulatory sv 15:07 Acuity: ROLANDO 2 sv Historical: - Allergies: 15:08 No Known Allergies; sv - PMHx: 15:08 Kidney stones; sv - PSHx: 15:08 None; sv - Immunization history:: Flu vaccine is up to date. - Social history:: Smoking status: Patient reports the use of cigarette tobacco products, denies chronic smoking, but will smoke occasionally. Screenin:14 Abuse screen: Denies threats or abuse. Denies injuries from another. Nutritional aj1 screening: No deficits noted. Tuberculosis screening: No symptoms or risk factors identified. 18:34 Fall Risk None identified. aj1 Assessment: 15:10 Reassessment: Informed Dr Alexandra of s/s for pt, ok to order a CT Stone. sv 18:14 General: Appears in no apparent distress. comfortable, Behavior is calm, cooperative, aj1 appropriate for age. Pain: Complains of pain in left flank Pain radiates to left lower quadrant Pain currently is 8 out of 10 on a pain scale. Neuro: Level of Consciousness is awake, alert, obeys commands, Oriented to person, place, time, situation. Cardiovascular: Patient's skin is warm and dry. Respiratory: Airway is patent Respiratory effort is even, unlabored, Respiratory pattern is regular, symmetrical. GI: Abdomen is non-distended, Bowel sounds present X 4 quads. Abd is soft and non tender X 4 quads. : Reports bloody urine, flank pain. EENT: No signs and/or symptoms were reported regarding the EENT system. Derm: No signs and/or symptoms reported regarding the dermatologic system. Skin is pink, warm \T\ dry. normal. Musculoskeletal: No signs and/or symptoms reported regarding the musculoskeletal system. Circulation, motion, and sensation intact. Vital Signs: 15:07 BP 161 / 91; Pulse 99; Resp 20; Temp 97.5; Pulse Ox 100% ; Weight 124.74 kg; Height 5 sv ft. 7 in. (170.18 cm); Pain 7/10; 15:07 Body Mass Index 43.07 (124.74 kg, 170.18 cm) sv ED Course: 14:49 Patient arrived in ED. as 15:08 Triage completed. sv 15:09 Arm band placed on. sv 15:31 CT Stone Protocol In Process Unspecified. EDMS 15:49 Maine Narayan FNP-C is PHCP. kb 15:49 Santo Alexandra MD is Attending Physician. kb 17:44 Eulalia Gil, BLAINE is Primary Nurse. aj1 18:14 Patient has correct armband on for positive identification. Bed in low position. Call aj1 light in reach. Side rails up X 1. 18:14 No provider procedures requiring assistance completed. aj1 18:34 Patient did not have IV access during this emergency room visit. aj1 Administered Medications: 18:07 Drug: TORadol 30 mg Route: IM; Site: right deltoid; aj1 18:33 Follow up: Response: No adverse reaction aj1 18:07 Drug: Augmentin 875 mg Route: PO; aj1 18:33 Follow up: Response: No adverse reaction aj1 Outcome: 17:45 Discharge ordered by . kb 18:33 Discharged to home ambulatory. aj1 18:33 Condition: good 18:33 Discharge instructions given to patient, Instructed on discharge instructions, follow up and referral plans. medication usage, Demonstrated understanding of instructions, follow-up care, medications, Prescriptions given X 2. 18:34 Patient left the ED. aj1 Signatures: Dispatcher [employer] Maine Wall, REHABILITATION TECH-C REHABILITATION TECH-Eulalia Arredondo RN RN aj1 Lin Crum RN RN sv Alisha Riggins as Corrections: (The following items were deleted from the chart) 15:09 15:07 Acuity: ROLANDO 3 sv sv
[2020-04-24] MEDS ORDERED: AMOX/K CLAV 875 MG TAB ONE (18:17)
[2020-04-24] MEDS ORDERED: KETOROLAC 30 MG/ML INJ ONE (18:17)
[2020-04-25 00:59] VITALS: BP 161/91; TEMP 97.5; O2SAT 100
== END 2020-04-24 18:34 | disposition home or self-care (01) ==
LOC: ER 14:47
DX: N39.0 Urinary tract infection, site not specified (principal); R31.9 Hematuria, unspecified; F17.210 Nicotine dependence, cigarettes, uncomplicated
CPT/HCPCS: 74176; 76377; 81003; 81015; 87077; 87086; 87088; 87186; 96372; 99283